=== PATIENT | female | born 1995 | race Caucasian/White ===

== ENCOUNTER 2018-01-04 23:09 | Emergency (ER) | payer BC, OTHER ==
[~2018-01-04] VITALS: Ht 165.1 cm; Wt 84.9 kg
[2018-01-04 23:14] VITALS: TEMP 36.6; Ht 165.1 cm; Wt 84.9 kg
[2018-01-04] MEDS ORDERED: ALBUT/IPRATROP 3MG/0.5MG NEB 3 ML VIAL INH STA (23:31)
--- NOTE | 2018-01-04 23:49 | EMERGENCY ROOM VISIT NOTE ---
History Report prepared by Coby: Ya Smith Under the Supervision of: Dr. Marylou Mina D.O. First contact with patient: 23:17 Chief Complaint: CARDIAC ASSESSMENT Stated Complaint: ASTHMA, CHEST PAIN, FEEL WEAK History of Present Illness The patient is a 22 year old female who presents to the Emergency Room with complaints of episode shortness of breath starting 2 hours ago. The patient states that she has a history of asthma and started having an attack while at work. She notes that she was fine before going into work this evening. She states that she usually has a rescue inhaler with her, but did not at this time. She reports that she feels that she cannot catch a full breath and that she is wheezing. The patient notes that the humidity sometimes makes her asthma worse. She states that this feels similar to her past asthma attacks. She notes that her last one was a month and a half ago. She reports that she is unsure when she was last on steroids, but notes that it has been within a year. The patient complains of chest pain starting half an hour ago. She describes the pain as a "tightness." The patient denies a cough, recent cold, increased stress , and abdominal pain. The patient notes that she could be . She notes that her LNMP was a month and a half ago, but a week ago she bled for half a day. Source of History: patient Onset: 2 hours ago Quality: other (shortness of breath) Timing: other (episode) Modifying Factors (Worsening): other (humidity) Associated Symptoms: + chest pain (tightness), No cough, No abdominal pain Note: The patient denies recent cold and increased stress. Review of Systems See HPI for pertinent positives & negatives. A total of 10 systems reviewed and were otherwise negative. Past Medical & Surgical Medical Problems: (1) Asthma Family History Patient reports no known family medical history. Social History Smoking Status: Never Smoker Alcohol Use: none Marital Status: in relationship Housing Status: lives with family Occupation Status: employed Current/Historical Medications Scheduled PRN Albuterol Hfa (Ventolin Hfa), 1-2 PUFFS INH DIRECTED PRN for Shortness of Breath Allergies Coded Allergies: Doxycycline (Verified Allergy, Mild, HIVES, 01/05/18) Penicillins (Verified Allergy, Unknown, HIVES, 01/05/18) Sulfa Antibiotics (Verified Allergy, Unknown, HIVES, 01/05/18) Physical Exam Vital Signs Date Time Temp Pulse Resp B/P (MAP) Pulse Ox O2 Delivery O2 Flow Rate FiO2 01/05/18 01:24 78 20 128/72 98 01/04/18 23:23 98 Room Air 01/04/18 23:14 36.6 89 18 132/79 98 Room Air Physical Exam HEENT: Head - normocephalic and atraumatic Pupils are equal, round, and reactive to light. Extraocular eye muscles are intact, and sclera are anicteric. Nose - moist nasal mucosa without discharge. Mouth - moist buccal mucosa. Oropharynx is nonerythematous and there is no tonsillar exudate or edema noted. Neck: Supple; no JVD, nuchal rigidity, cervical lymphadenopathy. Heart: Regular rate and rhythm. There is a normal S1 and S2 with no murmurs, clicks, or gallops appreciated. Lungs: Expiratory wheezes. No rales or rhonchi. Abdomen: Soft, completely nontender, nondistended, with good bowel sounds. There are no palpable pulsatile masses or hepatosplenomegaly. There is no guarding, rigidity, or rebound noted. Extremities: No evidence of cyanosis, clubbing, or edema. There are easily palpable peripheral pulses. Skin: warm and dry with good turgor and no rashes. Medical Decision & Procedures Medications Administered Medications (Trade) Dose Ordered Sig/Patricia Route Start Time Stop Time Status Last Admin Dose Admin Albuterol/ Ipratropium (Duoneb) 3 ml NOW STAT INH 01/04/18 23:31 01/04/18 23:33 DC 01/04/18 23:38 3 ML Albuterol (Ventolin Hfa Inhaler) 2 puffs NOW ONCE INH 01/05/18 01:15 01/05/18 01:16 DC 01/05/18 01:22 2 PUFFS Procedure 2331: Ordered Duoneb 3 ml INH. 0115: Ordered Albuterol 2 puffs INH. ECG Per My Interpretation Indication: SOB/dyspnea Rate (beats per minute): 84 Rhythm: normal sinus Findings: no acute ischemic change, no ectopy, other (no ST segment elevations) ED Course 2318: Past medical records reviewed. The patient was evaluated in room B3B. A complete history and physical exam was performed. 2331: Ordered Duoneb 3 ml INH. 0045: I reevaluated the patient and she was sleeping. I woke her up and she feels much better. O2 saturations remained stable. 0114: Upon reevaluation, the patient's repeat lung exam was clear. I discussed findings and results with her. She verbalized agreement of the treatment plan. The patient was discharged home. 0115: Ordered Albuterol 2 puffs INH. Medical Decision The patient is a 22 year old female who presents to the Emergency Room with complaints of shortness of breath starting 2 hours ago. Differential diagnoses include asthma attack, anxiety, pneumonia, bronchitis, allergic reaction, cardiac ischemia, pleurisy. This is a 22-year-old female patient with a history of asthma who presents to the emergency department with wheezing. The patient is out of her inhaler. The patient was given a nebulizer treatment here in the emergency department and felt much better. O2 saturations were stable. On repeat examination, she was no longer wheezing. I have asked the patient to follow-up with her PCP if the wheezing persists that she may require steroids. For right now, the patient will take an inhaler from the emergency department and use it 2 puffs every 4 hours as needed for wheezing. Medication Reconcilliation Current Medication List: was personally reviewed by me Blood Pressure Screening Patient's blood pressure: Normal blood pressure Blood pressure disposition: Did not require urgent referral Impression Primary Impression: Asthma exacerbation Scribe Attestation The scribe's documentation has been prepared under my direction and personally reviewed by me in its entirety. I confirm that the note above accurately reflects all work, treatment, procedures, and medical decision making performed by me. Departure Information Dispostion Home / Self-Care Referrals Solo Sánchez M.D. (PCP) Forms IMPORTANT VISIT INFORMATION Patient Instructions My [facility] Additional Instructions Rest. Use inhaler - 2 puffs every 4 hours as needed for wheezing over the next 3-5 days If your symptoms persist, follow up with PCP. If symptoms worsen, return to the ED Problem Qualifiers Primary Impression: Asthma exacerbation Asthma severity: mild Asthma persistence: intermittent Qualified Codes: J45.21 - Mild intermittent asthma with (acute) exacerbation
[2018-01-05] MEDS ORDERED: VNTHFA/IN INH (00:15)
[2018-01-05] MEDS ORDERED: ALBUTEROL HFA 8 GM INHALER INH ONE (01:15)
[2018-01-05 01:24] VITALS: BP 128/72; PULSE 78; O2SAT 98
== END 2018-01-05 01:25 | disposition home or self-care (01) ==
LOC: C.EDB 23:10
DX: J45.21 Mild intermittent asthma with (acute) exacerbation (principal); R07.9 Chest pain, unspecified; Z88.0 Allergy status to penicillin; Z88.1 Allergy status to other antibiotic agents; Z88.2 Allergy status to sulfonamides